=== PATIENT | female | born 1950 | race Caucasian/White ===

== ENCOUNTER 2016-08-18 10:14 | Day surgery (SDC) | payer OTHER ==
[~2016-08-18] VITALS: Ht 157.5 cm; Wt 108.4 kg
[2016-08-18] VITALS (12 sets, daily range): BP systolic 98–155; BP diastolic 49–92; PULSE 76–92; RESP 8–18; O2SAT 93–99
[~2016-08-18 10:14] MED LIST: ALBU8.5H2 INHALATION; AMLO10TA5 PO; ASCO100089 PO; BECL8.7A6 INHALATION; CALCIO DEL MAR PO; CHOL100045 PO; CYCL10TA9 PO; Clindamycin Inj 900 MG in IV Premix 1 EACH IV ONE; LISI30TA5 PO; Lactated Ringer's 1,000 ML IV SCH; MULT-1083 PO; OMEG1CAP25 PO; OMEP20CA11 PO; UBID200C31 PO; VENL75TA3 PO; VIT1TABL83 PO
[2016-08-18] MEDS ORDERED: MetoCLOpramide 5 mg/mL 2 mL Inj ONE (10:15)
[2016-08-18] MEDS ORDERED: Ondansetron 2 mg/mL 2 mL Inj ONE (10:15)
[2016-08-18] MEDS ORDERED: Phenylephrine/NS 100 mCg/mL 10 mL Syringe IVPUSH ONE (10:15)
[2016-08-18] MEDS ORDERED: fentaNYL-PF 50 mCg/mL 2 mL Inj ONE (10:15)
[2016-08-18] MEDS ORDERED: Propofol 10,000 mCg/mL 20 mL Inj ONE (10:15)
[2016-08-18] MEDS ORDERED: Dexamethasone 4 mg/mL Inj ONE (10:15)
[2016-08-18] MEDS ORDERED: Clindamycin 900 mg/50 mL D5W Premix IV ONE (10:46)
[2016-08-18] MEDS ORDERED: Famotidine 20 mg/50 mL NS Premix IV ONE (13:43)
[2016-08-18] MEDS ORDERED: HepLOK Flush 100 unit/mL 5 mL Inj IVFLUSH ONE (14:17)
[2016-08-18] MEDS ORDERED: Bupivacaine-MPF 0.5% W/EPI 30 mL Inj INFILTRATE ONE (14:17)
[2016-08-18] MEDS ORDERED: Lactated Ringer's 1,000 ML IV SCH (14:23)
[2016-08-18] MEDS ORDERED: Lactated Ringer's 500 ML IV PRN (14:23)
[2016-08-18] MEDS ORDERED: MetoCLOpramide 5 mg/mL 2 mL Inj IVPUSH PRN (14:25)
[2016-08-18] MEDS ORDERED: Labetalol 5 mg/mL 4 mL Inj IV PRN (14:25)
[2016-08-18] MEDS ORDERED: Phenylephrine 10,000 mCg/mL Inj IVPUSH PRN (14:25)
[2016-08-18] MEDS ORDERED: Atropine 0.4 mg/mL Inj IVPUSH PRN (14:25)
[2016-08-18] MEDS ORDERED: hydrALAZINE 20 mg/mL Inj IVPUSH PRN (14:25)
[2016-08-18] MEDS ORDERED: fentaNYL-PF 50 mCg/mL 2 mL Inj IVPUSH PRN (14:25)
[2016-08-18] MEDS ORDERED: EPHEDrine Sulfate 50 mg/mL Inj IVPUSH PRN (14:25)
[2016-08-18] MEDS ORDERED: Ketorolac 15 mg/mL Inj IVPUSH PRN (14:55)
[2016-08-18] MEDS ORDERED: HYDROcodone-APAP 5-325 mg Tablet PO PRN (14:55)
--- NOTE | 2016-08-18 14:56 | PCM.SURGOP ---
Surgical Operative Report Date of Service: Aug 18, 2016 Pre Operative Diagnosis Right breast cancer Post Operative Diagnosis Same Procedure: Tunneled left subclavian central venous catheter with power port, intraoperative fluoroscopy with interpretation Surgeon and Optometry Teacher: Surgeon: Angel Stanley MD Assistants: None Indication for Procedure 66-year-old woman who was diagnosed with locally advanced right breast cancer, clinical T4 N1, ER/IL positive, [id number]. Plans have been made to treat her with neoadjuvant chemotherapy. After discussion of risks and benefits, she agreed to proceed with Port-A-Cath placement. Findings: The left subclavian vein was patent. The catheter tip was positioned at the cavoatrial junction. Procedure Details After smooth induction of general anesthesia with an LMA, the patient was positioned in the supine position with both arms tucked. The patient was prepped and draped in wide sterile fashion. A procedural pause was performed according to the SCOAP checklist, and all were found to be in agreement. The patient was placed in Trendelenburg position. The left subclavian vein was accessed with a finder needle in a single pass, and the 0.035 inch wire was passed into the vena cava. It was confirmed with fluoroscopy. A subcutaneous pocket was created on the left upper chest wall using electrocautery. The port reservoir was secured to the fascia with interrupted 3-0 Vicryl sutures. The catheter was connected to the tunneler, and tunneled under the subcutaneous tissue to the venipuncture site. The introducer sheath and dilator was passed over the wire under fluoroscopic guidance. The catheter was then passed through the tear-away sheath into the vena cava. The sheath was removed. The catheter was then pulled back under fluoroscopic guidance until the tip was positioned at the cavoatrial junction. The catheter was cut to size, and connected to the port reservoir. The port was accessed using a Beckford needle, which aspirated and flushed easily. The port was then flushed with the final heparin flush, consisting of 100 units per mL, a total of 4 mL. A final fluoroscopic image confirmed that the port was in good position with no kinks, and there was no evidence of pneumothorax. The incision was closed with a running 4-0 Monocryl subcuticular stitch. Steri-Strips and sterile dressings were applied. At the end of the case all needle and sponge counts were correct 2. The patient was awakened from anesthesia without difficulty, and taken to the recovery room in satisfactory condition, having tolerated the procedure well. Complications There were no periprocedural complications identified. Surgical Specimen Removed: No Specimen sent to Pathology: Not applicable Anesthetic Plan: GA Grafts, Implants: Implants-See Implant Record Output, Estimated Blood Loss: 5 Blood Administration during johnson: No Drains: None Catheters: None copies to: Kiana White MD; Kelley France MD, Joshua D MD Aug 18, 2016 14:56
--- NOTE | 2016-08-18 16:25 | PCM.HPANE ---
Patient Data Surgeon Admitting Provider: Attending Provider:Angel Stanley MD Primary Care Physician:Kelley France MD Other Provider:[facility] Anesthesia Reason for Visit Right Breast Cancer Ht/WT & BMI Height (Feet): 5 Height (Inches): 2.00 Weight (Kilograms): 108.4 Body Mass Index 43.00 Allergies Coded Allergies: Penicillins (Verified Allergy, Severe, Rash,Itching,hives, 08/12/16) ondansetron (Verified Allergy, Severe, HIVES, 08/12/16) Uncoded Allergies: DYAZIDE (HCTZ/TRIAMTERENE) (Allergy, Severe, HIVES, 08/12/16) Past Anesthesia History Anesthesia History: Denies:: Anesthesia Reactions, Malignant Hyperthermia Diabetes History Hx Diabetes?: No MRSA MRSA: No Medications Hypertension Medication: Yes (LISINOPRIL,NORVASC) Home Meds Incl Beta Glenny: No Reported Medications Multivit-Min/FA/Lycopene/Lut (Senior Tabs)0.4 Mg-300 Mcg-250 Mcg Tablet1 Each PO DAILY 08/12/16 Cholecalciferol (Vitamin D3) (Vitamin D)1,000 Unit Capsule1,000 Unit PO DAILY # 1 BOTTLE Ref 0 08/12/16 Ascorbic Acid (Vitamin C)1,000 Mg Tab.chew1,000 Mg PO DAILY Ref 0 08/12/16 Vit B Comp/C/FA/Iron/Vit E (Vitamin B Complex Tablet)1 Each Tablet1 Each PO DAILY 08/12/16 Venlafaxine 75 Mg Vgbosi160 Mg PO DAILY Ref 0 08/12/16 Beclomethasone Dipropionate (Qvar)8.7 Gm Aer.w.adap1 Puff INHALATION BID #8.7 GM 08/12/16 Omeprazole 20 Mg Capsule.dr20 Mg PO BID Ref 0 08/12/16 [place]-3 Fatty Acids/Fish Oil ([place] 3 Fish Oil Softgel)1 Each Capsule.dr1 Each PO DAILY 08/12/16 Amlodipine (Norvasc)10 Mg Fspnyv67 Mg PO DAILY Ref 0 08/12/16 Lisinopril 30 Mg Mrjjci89 Mg PO BID 30 Days Ref 0 08/12/16 Cyclobenzaprine 10 Mg Bzrfga41 Mg PO HS PRN Spasm Ref 0 08/12/16 Ubidecarenone (Coenzyme Q-10)200 Mg Bulhcln132 Mg PO DAILY 08/12/16 [Calcio José Miguel] No Conflict Oyqxj037 Mg PO DAILY 08/12/16 Albuterol HFA (Proair HFA)8.5 Gm Hfa.aer.ad2 Puffs INHALATION Q4H PRN PRN #1 INHALER 08/12/16 Discontinued Reported Medications Trazodone 50 Mg Ivsqyi10 Mg PO HS Ref 0 07/28/16 Gabapentin (Neurontin)100 Mg Sutolwo050 Mg PO BID Ref 0 07/28/16 Lisinopril-Expunged Drug, Do Not Renew! 30 Mg Obwsjj27 Mg PO HS 06/18/10 AmLODIPine-Expunged Drug, Do Not Renew! 10 Mg Syyqvq86 Mg PO HS 06/18/10 Venlafaxine-Expunged Drug, Do Not Renew! (Effexor-Expunged Drug, Do Not Renew!) 75 Mg Yioaqs94 Mg PO HS 06/18/10 Omeprazole-Expunged Drug, Do Not Renew! 20 Mg Tablet.dr20 Mg PO BID 06/18/10 History History of ENT Problems?: Yes HEENT History: Positive for:: Cataracts (S/P EXTRACTIONS) Other HEENT Pertinent History: S/P T&A Hx of Heart Problems?: Yes Cardiovascular History: Positive for:: Chest Pain (ED VISIT 2004) Hypertension (HYPERLIPIDEMIA) Denies:: Cardiac Surgery Congestive Heart Failure Edema Heart Murmur (ECHO 08/2016 EF 60-65%) Irregular Heartbeat Pacemaker Thrombophlebitis Valvular Heart Disease Other Cardiac History: HX LEUKOCYTOSIS Hx of Respiratory Problem?: Yes Respiratory History: Positive for:: Asthma (MILD REACTIVE AIRWAY DISEASE-PFT 07/2013) COPD Cough Dyspnea (MILD NIELSON) Emphysema Use of C-PAP Machine (SUHAIL+ ?CPAP) Hx Neurologic Problems?: Yes Other Neurological Pertinent: RLS Hx of GI Problems?: Yes Gastrointestinal History: Positive for:: Gastroesphageal Reflux Hepatitis (HX HEP C) Hiatal Hernia Denies:: Diverticulitis Gastrointestinal Bleeding Heartburn Rectal Bleeding (HX HEMORRHOIDS) Other GI Pertinent History: C/OF CHRONIC CONSTIPATION Hx of Problems?: No Female Hx: Positive for:: Problems with Breasts? (S/P BREAST BX FOR RT BREAST CA/IV ACCESS=CURRENT PROBLEM) Denies:: Currently Endometriosis Pelvic Inflammatory Skin History: Positive for:: History Skin Disorders? (ACTINIC KERATOSIS) Denies:: Pressure Ulcers Hx Musculoskeletal Problems?: Yes Musculoskeletal History: Positive for:: Fibromyalgia Musculoskeletal Trauma (S/P RT KNEE SCOPE,ORIF RT CLAVICLE) Osteoarthritis (OSTEOPENIA) Denies:: Back Injury Joint Replacement Hx of Psycho/Social Problems?: Yes Psycho Social History: Positive for:: Anxiety (CHRONIC) Hx Depression (MAJOR) Denies:: Bipolar Disorder Suicide Attempt Hx Surgeries?: Yes (RT KNEE SCOPE,ORIF RT CLAVICLE,T&A,CATARACTS) Hx Any Other Health Problems?: Yes Other History: Positive for:: Cancer (RT BREAST) Denies:: Endocrine Disease Hospitalization Thyroid Disease History Blood Transfusions: Denies:: Blood Transfuse Reaction Blood Transfusions Hx Diabetes: No Hx Alcohol Use: NoHx Substance Use: No Smoking Status: Never Smoker Have You Smoked inLast 12 mo: No Stop/Bang S-Snoring: Do You Snore Loudly: No T-Tired: feel tired, fatigued: Yes O-Obsered: Observed not breath: No P-Blood Pressure: treated: Yes B- Body Mass Index > 35 kg/m2: Yes A- Age over 50: Yes N- Neck Large Circumference: Yes G- Gender Male: No SUHAIL Total Score: 5 Risk Assessment Category Category 1A: Patient has history of documented sleep apnea, and HAS NOT received any narcotic, sedative or anesthesia administration during this stay. Category 1B: Patient has history of documented sleep apnea, and HAS received any narcotic , sedative or anesthesia administration during this stay Category 2: Patient has SUSPECTED Obstructive Sleep Apnea, and HAS received any narcotic , sedative or anesthesia administration during this stay. Category 3: Patient has SUSPECTED Obstructive Sleep Apnea and HAS NOT received narcotic, sedative or anesthesia administration during this stay. Category 4: Outpatient in Procedural Areas with known sleep apnea or who screen positive for High Risk via the STOP/BANG questionnaire. Exam Exam Vital Signs Vital Signs Date Time Temp Pulse Resp B/P Pulse Ox O2 Delivery O2 Flow Rate FiO2 08/18/16 10:57 36.2 92 18 155/92 96 Room Air General Appearance: Alert, Oriented X3, Cooperative, No Acute Distress HEENT/AIRWAY: MP 2 Lungs: Diminished Heart: Exam Unremarkable, Regular Rate/Rhythm, No Murmurs/Rubs/Gallops Plan Impression Patient chart reviewed, patient interviewed and anesthestic plan with risks, benefits, and alternatives discussed, and informed consent obtained. NPO Status: 08/17 at 2200 ASA Physical Status: ASA3 Severe Disease (COPD) Anesthetic Plan: GA Bene/Risks/Altern/Consents: Yes HP Complete Prior to Induction: Yes Roshan Sifuentes MD Aug 18, 2016 12:21
--- NOTE | 2016-08-18 16:26 | PCM.ANEP1 ---
Post Anesthesia Phase 1 PACU Phase 1 Assessment Date of Service: Aug 18, 2016 Vital Signs Vital Signs Date Time Temp Pulse Resp B/P Pulse Ox O2 Delivery O2 Flow Rate FiO2 08/18/16 15:42 81 16 125/53 93 Room Air 08/18/16 15:39 36 83 16 115/55 94 Room Air 08/18/16 15:30 79 15 119/61 95 Room Air 08/18/16 15:20 36.0 81 13 117/50 96 Room Air 08/18/16 15:15 79 15 112/50 95 Room Air 08/18/16 15:10 78 15 116/54 95 Room Air 08/18/16 15:05 36.3 78 11 114/57 93 Room Air 08/18/16 15:00 76 8 108/50 94 Room Air 08/18/16 14:55 80 17 98/49 96 Room Air 08/18/16 14:50 76 16 116/59 94 Room Air 08/18/16 14:47 36.3 78 11 123/60 99 Simple Mask 8 08/18/16 10:57 36.2 92 18 155/92 96 Room Air Anesthetic Administered: GA Level of Alertness: Awake, talking RAMÍREZ's with Equal Strength: Yes Pain: No Nausea or Vomiting: No Oxygen Delivery: Simple Mask Lungs: Diminished Dermatome Level: Full Sensation Roshan Sifuentes MD Aug 18, 2016 16:26
--- NOTE | 2016-08-18 16:26 | PCM.ANEP2 ---
Post Anesthesia Evaluation ASA/CMS Post Anesthesia VS in Patient's Normal Range?: Yes Resp Stable; Airway Patent?: Yes CV Function & Hydration Stable: Yes Mental Status Recovered?: Yes Pain control Satisfactory?: Yes N/V Control Satisfactory?: Yes Roshan Sifuentes MD Aug 18, 2016 16:26
[2016-08-24] MEDS ORDERED: METO25TA99 PO (11:01)
[2016-10-05] MEDS ORDERED: VIT500LI PO (11:28)
[2016-11-27] MEDS ORDERED: BECL8.7A6 INHALATION (15:34)
[2016-11-27] MEDS ORDERED: GABA400C PO (15:34)
[2016-11-27] MEDS ORDERED: TRAZ-115 PO (15:34)
[2016-11-27] MEDS ORDERED: LISI30TA5 PO (15:34)
[2016-11-27] MEDS ORDERED: METO25TA99 PO (15:34)
[2016-11-27] MEDS ORDERED: flexeril (15:34)
[2016-11-27] MEDS ORDERED: AMLO10TA5 PO (15:34)
[2016-11-27] MEDS ORDERED: VENL150T3 PO (15:34)
[2016-11-27] MEDS ORDERED: OMEP20TA86 PO (15:34)
== END 2016-08-18 23:59 | disposition home or self-care (01) ==
LOC: SAS 10:14
PROVIDERS: ATTEND Student in an Organized Health Care Education/Training Program
DX: C50.111 Malignant neoplasm of central portion of right female breast (principal); Z17.0 Estrogen receptor positive status [ER+]; I10 Essential (primary) hypertension; J44.9 Chronic obstructive pulmonary disease, unspecified; G47.33 Obstructive sleep apnea (adult) (pediatric)
CPT/HCPCS: 36561; 77001; C1788; J1100; J1642; J2370; J2405; J2765; J3490; J7120

== ENCOUNTER 2016-12-01 09:57 | Day surgery (SDC) | payer MEDICARE, OTHER ==
[~2016-12-01] VITALS: Ht 157.5 cm; Wt 105.7 kg
[2016-12-01] VITALS (9 sets, daily range): BP systolic 97–140; BP diastolic 42–79; PULSE 93–99; RESP 10–20; O2SAT 94–100
[~2016-12-01 09:57] MED LIST changes: -ALBU8.5H2 INHALATION; -ASCO100089 PO; -CALCIO DEL MAR PO; -CHOL100045 PO; -CYCL10TA9 PO; +GABA400C PO; +METO25TA99 PO; -MULT-1083 PO; -OMEG1CAP25 PO; -OMEP20CA11 PO; +OMEP20TA86 PO; +TRAZ-115 PO; -UBID200C31 PO; +VENL150T3 PO; -VENL75TA3 PO; -VIT1TABL83 PO; +flexeril
[2016-12-01] MEDS ORDERED: Vasopressin 20 Unit/mL Inj ONE (09:58)
[2016-12-01] MEDS ORDERED: Phenylephrine/NS-PF 100 mCg/mL 5 mL Syringe IVPUSH ONE (09:58)
[2016-12-01] MEDS ORDERED: Dexamethasone 4 mg/mL Inj ONE (09:58)
[2016-12-01] MEDS ORDERED: HYDROmorphone 2 mg/mL Inj ONE (09:58)
[2016-12-01] MEDS ORDERED: fentaNYL-PF 50 mCg/mL 2 mL Inj ONE (09:58)
[2016-12-01] MEDS ORDERED: MetoCLOpramide 5 mg/mL 2 mL Inj ONE (09:58)
[2016-12-01] MEDS ORDERED: Rocuronium 10 mg/mL 5 mL Inj ONE (09:58)
[2016-12-01] MEDS ORDERED: Propofol 10,000 mCg/mL 20 mL Inj ONE (09:58)
[2016-12-01] MEDS ORDERED: CYCL10TA9 PO (11:02)
[2016-12-01] MEDS ORDERED: CHOL100043 PO (11:02)
[2016-12-01] MEDS ORDERED: ASCO-294 PO (11:02)
[2016-12-01] MEDS ORDERED: Bupivacaine-MPF 0.25%/EPI 30 mL Inj INFILTRATE ONE ×2 (12:56→13:53)
[2016-12-01] MEDS ORDERED: Lactated Ringer's 1,000 ML IV ONE ×3 (12:57→14:43)
[2016-12-01] MEDS ORDERED: Bupivacaine 0.5%/EPI 50 mL Inj INFILTRATE ONE (13:53)
[2016-12-01] MEDS ORDERED: Lactated Ringer's 1,000 ML IV SCH (15:32)
[2016-12-01] MEDS ORDERED: Lactated Ringer's 500 ML IV PRN (15:32)
[2016-12-01] MEDS ORDERED: Phenylephrine 10,000 mCg/mL Inj IVPUSH PRN (15:35)
[2016-12-01] MEDS ORDERED: HYDROmorphone 1 mg/mL Inj IVPUSH PRN (15:35)
[2016-12-01] MEDS ORDERED: Dexamethasone 4 mg/mL Inj IVPUSH PRN (15:35)
[2016-12-01] MEDS ORDERED: MetoCLOpramide 5 mg/mL 2 mL Inj IVPUSH PRN ×2 (15:35→15:40)
[2016-12-01] MEDS ORDERED: EPHEDrine Sulfate 50 mg/mL Inj IVPUSH PRN (15:35)
[2016-12-01] MEDS ORDERED: Morphine PCA 1 mg/mL 30 mL Inj IV PRN (15:40)
[2016-12-01] MEDS ORDERED: Ondansetron 2 mg/mL 2 mL Inj IVPUSH PRN (15:40)
[2016-12-01] MEDS ORDERED: Acetaminophen IV 1,000 MG in IV Premix 1 EACH IV PRN (15:40)
--- NOTE | 2016-12-01 15:50 | PCM.SURGOP ---
Surgical Operative Report Date of Service: December 01, 2016 Pre Operative Diagnosis Right breast cancer Post Operative Diagnosis Same Procedure: Bilateral simple mastectomy, right axillary lymph node dissection with reverse axillary lymphatic mapping Surgeon and Casting And Curing Operator: Surgeon: Angel Stanley MD Assistants: Julio Cesar Webb MS3 Indication for Procedure 66-year-old woman who was originally diagnosed with clinical T2 N1, and possibly T4 right breast invasive ductal carcinoma, ER/MD positive, HER-2 negative. She was treated with neoadjuvant chemotherapy. Her preoperative response was not optimal, and she still had a primary mass in the right breast measuring 5.2 cm. She had persistently abnormal axillary lymph nodes on her preoperative MRI. After discussion of risks and benefits, she agreed to proceed with bilateral mastectomy, right axillary lymph node dissection, reverse axillary lymphatic mapping. She was not interested in breast reconstruction. Findings: Methylene blue was injected into the right upper inner arm. There were no visible blue lymphatics in the right axilla at the time of dissection. Procedure Details After smooth induction of general endotracheal anesthesia, she was placed in the supine position, and was prepped and draped in wide sterile fashion. A procedural pause was performed according to the SCOAP checklist, and all were found to be in agreement. An elliptical left breast incision was made, encompassing the nipple areolar complex. She is morbidly obese, with a lot of excess redundant left flank tissue, so the incision extended well onto her left flank. Skin flaps were raised superiorly and inferiorly. Circumferential dissection was carried out with electrocautery. The skin and subcutaneous tissue was elevated off the underlying breast capsule. Margins of dissection were the left clavicle, the midline, the left inframammary crease, and the left midaxillary line. Superiorly, she had a left upper chest Port-A-Cath, and the capsule from the port site was not interrupted. The left breast was then dissected off the underlying chest wall, and pectoralis fascia was resected en bloc. Medial and lateral perforating vessels were controlled with hemoclips. The left breast was oriented with suture, and passed off the field for permanent pathology. A 19 [place] round VARUN drain was brought out through a separate incision laterally, and the drain was secured to the skin with a 3-0 nylon stitch. The skin incision was closed with an interrupted deep dermal 3-0 Vicryl suture, and a running 4-0 Vicryl subcuticular stitch. Right simple mastectomy was performed next. An elliptical incision was made, encompassing the nipple areolar complex. Flaps were raised superiorly and inferiorly. Circumferential dissection was carried out with electrocautery as the skin and subcutaneous tissue was elevated off the underlying breast capsule. Margins of dissection were the right clavicle, the midline, the right inframammary crease, and the right midaxillary line. The right breast was elevated off the underlying chest wall. Medial and lateral perforating vessels were controlled with hemoclips. The right breast was oriented with suture, and passed off the field for permanent pathology. Because of the large tumor size, I elected to take a small chest wall margin including pectoralis muscle. This was resected with electrocautery, oriented with suture, and sent for permanent pathology. 1 mL of methylene blue was injected into the right upper medial arm into the subdermal tissue, and the skin was massaged for several minutes. A complete level I and 2 right axillary lymph node dissection was then performed. The right axillary vein was skeletonized. The right long thoracic and thoracodorsal nerves were visualized and preserved. All of the loose areolar node bearing tissue was then swept out of the apex of the axilla inferiorly. There were several branches off the axillary vein, which were divided with hemoclips. The right axillary tissue was dissected free, and sent for permanent pathology. During the course of axillary dissection, there were no visible blue lymphatics. At the completion of dissection, there was no residual palpable lymphadenopathy, and the long thoracic and thoracodorsal nerves remained intact. A 19 [place] round VARUN drain was brought out through separate incision laterally. The drain was secured to the skin with a 2-0 nylon stitch. The skin incision was closed with interrupted deep dermal 3-0 Vicryl suture, and a running 4-0 Vicryl subcuticular stitch. Steri-Strips and sterile dressings were applied. At the end of the case all needle and sponge counts were correct 2. The patient was awakened from anesthesia without difficulty, and taken to the recovery room in satisfactory condition, having tolerated the procedure well. Complications There were no periprocedural complications identified. Surgical Specimen Removed: Yes Specimen sent to Pathology: Yes Surgical Specimen description: Left breast. Right breast. Right chest wall tissue. Right axillary lymph node dissection. Anesthetic Plan: GA Grafts, Implants: None Output, Estimated Blood Loss: 50 Blood Administration during johnson: No Drains: VARUN Drain #1, VARUN Drain #2 Catheters: None copies to: Verena Ratliff MD; Kiana White MD; Norris Bello MD, Joshua D MD December 01, 2016 15:50
--- NOTE | 2016-12-01 16:01 | PCM.ANEP1 ---
Post Anesthesia Phase 1 PACU Phase 1 Assessment Date of Service: December 01, 2016 Vital Signs Vital Signs Date Time Temp Pulse Resp B/P Pulse Ox O2 Delivery O2 Flow Rate FiO2 12/01/16 15:55 99 12 113/60 94 Room Air 12/01/16 15:50 99 14 97/54 97 Room Air 12/01/16 15:45 96 13 108/47 100 Simple Mask 8 12/01/16 15:41 36.3 95 13 106/57 100 Simple Mask 8 12/01/16 11:09 35.0 95 16 140/75 96 Room Air Anesthetic Administered: GA Level of Alertness: Awake, talking RAMÍREZ's with Equal Strength: Yes Pain: No Nausea or Vomiting: No Cardiovascular Function and Hy: Yes Oxygen Delivery: Room Air Lungs: Clear to Auscultation Dermatome Level: Full Sensation Complications: No Morales Wright MD December 01, 2016 16:01
--- NOTE | 2016-12-01 16:01 | PCM.HPANE ---
Patient Data Surgeon Admitting Provider: Attending Provider:Angel Stanley MD Primary Care Physician:Kiana White MD Other Provider:Rhianna Izquierdoingham Anesthesia Reason for Visit Right Breast Cancer Ht/WT & BMI Height (Feet): 5 Height (Inches): 2 Weight (Kilograms): 108.4 Body Mass Index 43.00 Allergies Coded Allergies: Penicillins (Verified Allergy, Severe, Rash,Itching,hives, 08/12/16) ondansetron (Verified Allergy, Severe, HIVES, 08/12/16) triamterene (Verified Allergy, Intermediate, MALAISE, 12/01/16) Past Anesthesia History Anesthesia History: Denies:: Abnormal Airway, Anesthesia Reactions, Difficult Intubation, Fam Anesthesia Reaction, Malignant Hyperthermia Diabetes History Hx Diabetes?: No MRSA MRSA: No Medications Reported Medications Ascorbate Calcium (Vitamin C)500 Mg Klnnkj925 Mg PO DAILY 12/01/16 Cholecalciferol (Vitamin D3) (Vitamin D)1,000 Unit Tablet2,000 Unit PO DAILY #1 BOTTLE Ref 0 12/01/16 Cyclobenzaprine 10 Mg Fjcbhr70 Mg PO HS PRN Spasm Ref 0 12/01/16 Venlafaxine ER 150 Mg Tab.er.37537 Mg PO DAILY Ref 0 11/27/16 Trazodone 50 Mg Mmmyfe82 Mg PO HS PRN Insomnia Ref 0 11/27/16 Beclomethasone Dipropionate (Qvar)8.7 Gm Aer.w.adap1 Puff INHALATION BID #8.7 GM 11/27/16 Omeprazole 20 Mg Tablet.dr20 Mg PO DAILY 11/27/16 Amlodipine (Norvasc)10 Mg Vmesmd04 Mg PO DAILY Ref 0 11/27/16 Gabapentin (Neurontin)400 Mg Ggnksbn640 Mg PO TID PRN For Pain 30 Days Ref 0 11/27/16 Metoprolol Succinate ER 25 Mg Tab.er.24h25 Mg PO DAILY Ref 0 11/27/16 Lisinopril 30 Mg Vrbmgd21 Mg PO DAILY 30 Days Ref 0 11/27/16 Discontinued Reported Medications [flexeril] No Conflict Check10 Mg HS PRN For Spasm 11/27/16 Vit C/Ascorbate Ca/Ascorb Sod (Vitamin C 500 mg/15 ml Liquid)500 Mg/15 Ml Bpvivf285 Mg PO 10/05/16 Metoprolol Succinate ER 25 Mg Tab.er.24h25 Mg PO DAILY Ref 0 08/24/16 Multivit-Min/FA/Lycopene/Lut (Senior Tabs)0.4 Mg-300 Mcg-250 Mcg Tablet1 Each PO DAILY 08/12/16 Cholecalciferol (Vitamin D3) (Vitamin D)1,000 Unit Capsule1,000 Unit PO DAILY # 1 BOTTLE Ref 0 08/12/16 Vit B Comp/C/FA/Iron/Vit E (Vitamin B Complex Tablet)1 Each Tablet1 Each PO DAILY 08/12/16 Venlafaxine 75 Mg Izgkmy730 Mg PO DAILY Ref 0 08/12/16 Beclomethasone Dipropionate (Qvar)8.7 Gm Aer.w.adap1 Puff INHALATION BID #8.7 GM 08/12/16 Omeprazole 20 Mg Capsule.dr20 Mg PO BID Ref 0 08/12/16 [place]-3 Fatty Acids/Fish Oil ([place] 3 Fish Oil Softgel)1 Each Capsule.dr1 Each PO DAILY 08/12/16 Amlodipine (Norvasc)10 Mg Vcsiqh45 Mg PO DAILY Ref 0 08/12/16 Lisinopril 30 Mg Jjsbty55 Mg PO BID 30 Days Ref 0 08/12/16 Cyclobenzaprine 10 Mg Xcociy59 Mg PO HS PRN Spasm Ref 0 08/12/16 Ubidecarenone (Coenzyme Q-10)200 Mg Abvszyv376 Mg PO DAILY 08/12/16 [Calcio [place]] No Conflict Uykis071 Mg PO DAILY 08/12/16 Albuterol HFA (Proair HFA)8.5 Gm Hfa.aer.ad2 Puffs INHALATION Q4H PRN PRN #1 INHALER 08/12/16 History History of ENT Problems?: Yes HEENT History: Positive for:: Cataracts (bilateral) Denies:: Abnormal Airway Difficult Intubation Dysphagia Sinus Problem TMJ Denture Type: None Teeth Condition: Within Normal Limits Missing Teeth Hx of Heart Problems?: Yes Cardiovascular History: Positive for:: Hypertension (HYPERLIPIDEMIA) Denies:: Cardiac Surgery Chest Pain Congestive Heart Failure Edema Heart Murmur Irregular Heartbeat Pacemaker Thrombophlebitis Valvular Heart Disease (echo 60-65% 0836) Hx of Respiratory Problem?: Yes Respiratory History: Positive for:: Asthma COPD Cough Dyspnea (MILD NIELSON) Emphysema Use of Inhalers / NEBS Denies:: Pneumonia Tuberculosis Use of C-PAP Machine (sleep study mild- no CPAP needed) Hx Neurologic Problems?: No Neurological History: Denies:: CVA Dementia Headaches Multiple Sclerosis Parkinson's Disease Seizures TIA Other Neurological Pertinent: 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 (right breast cancer current admission problem) Denies:: Currently (tubal ) Endometriosis Pelvic Inflammatory Skin History: Positive for:: History Skin Disorders? (scabbed areas from chemo - across shoulders, arms left calf thigh) Denies:: Pressure Ulcers Hx Musculoskeletal Problems?: Yes Musculoskeletal History: Positive for:: Fibromyalgia Musculoskeletal Trauma (S/P RT KNEE SCOPE, ORIF RT CLAVICLE, right arm ORIF with hardware) Osteoarthritis (osteopenia) Denies:: Back Injury Joint Replacement Myasthenia Gravis Systemic Lupus Hx of Psycho/Social Problems?: Yes Psycho Social History: Positive for:: Anxiety Hx Depression Denies:: Bipolar Disorder Suicide Attempt Hx Surgeries?: Yes (RT KNEE SCOPE,ORIF RT CLAVICLE,T&A,CATARACTS) Hx Any Other Health Problems?: Yes Other History: Positive for:: Cancer (right breast) Denies:: Endocrine Disease Hospitalization Thyroid Disease History Blood Transfusions: Positive for:: Accept Blood Products? Denies:: Blood Transfuse Reaction Blood Transfusions (iron infusion jun 2016) Hx Diabetes: No Hx Alcohol Use: YesAlcoholic Drinks Per Day: 1-2 x monthlyHx Substance Use: Yes (spray tincture for sleep) Smoking Status: Never Smoker Have You Smoked inLast 12 mo: No Stop/Bang S-Snoring: Do You Snore Loudly: No T-Tired: feel tired, fatigued: No O-Obsered: Observed not breath: No P-Blood Pressure: treated: Yes B- Body Mass Index > 35 kg/m2: Yes A- Age over 50: Yes N- Neck Large Circumference: Yes G- Gender Male: No SUHAIL Total Score: 4 Risk Assessment Category Category 1A: Patient has history of documented sleep apnea, and HAS NOT received any narcotic, sedative or anesthesia administration during this stay. Category 1B: Patient has history of documented sleep apnea, and HAS received any narcotic , sedative or anesthesia administration during this stay Category 2: Patient has SUSPECTED Obstructive Sleep Apnea, and HAS received any narcotic , sedative or anesthesia administration during this stay. Category 3: Patient has SUSPECTED Obstructive Sleep Apnea and HAS NOT received narcotic, sedative or anesthesia administration during this stay. Category 4: Outpatient in Procedural Areas with known sleep apnea or who screen positive for High Risk via the STOP/BANG questionnaire. Exam Exam General Appearance: Alert, Oriented X3, Cooperative, No Acute Distress HEENT/AIRWAY: MP 2 Lungs: Clear to Auscultation Heart: Exam Unremarkable Plan Impression Patient chart reviewed, patient interviewed and anesthestic plan with risks, benefits, and alternatives discussed, and informed consent obtained. ASA Physical Status: ASA3 Severe Disease Anesthetic Plan: GA Bene/Risks/Altern/Consents: Yes HP Complete Prior to Induction: Yes Morales Wright MD December 01, 2016 08:40
[2016-12-01] MEDS: fentaNYL-PF 50 mCg/mL 2 mL Inj IVPUSH PRN ×2 (16:09→16:19)
[2016-12-01] MEDS: Dextrose 5% Lactated Ringer's 1,000 ML IV SCH (17:36)
[2016-12-01] MEDS ORDERED: 0.9% Sodium Chloride 250 ML IV SCH (17:44)
[2016-12-01] MEDS ORDERED: Sodium Chloride LOK Flush 10 mL Syringe IVFLUSH PRN ×2 (17:45)
[2016-12-01] MEDS ORDERED: HepLOK Flush 100 unit/mL 5 mL Inj IVFLUSH PRN (17:45)
[2016-12-01] MEDS: Fluticasone 100 mCg Inhaler INHALATION SCH (20:12)
[2016-12-01 20:25] LABS: APPEARANCE,URINE CLEAR (CLEAR,HAZY); COLOR,URINE GREEN (YELLOW); OCCULT BLOOD,URINE NEGATIVE (NEGATIVE); PH,URINE 5.5 (5.0-8.0); UROBILINOGEN,URINE NORMAL (NORMAL)
[2016-12-02] VITALS (7 sets, daily range): BP systolic 99–119; BP diastolic 66–78; PULSE 77–87; RESP 18–20; O2SAT 95–98
[2016-12-02] MEDS: Dextrose 5% Lactated Ringer's 1,000 ML IV SCH (05:31)
[2016-12-02] MEDS ORDERED: Pantoprazole 40 mg ER24 Tablet PO SCH (06:30)
[2016-12-02 07:23] LABS: Mean Corpuscular Hemoglobin 33.6 pg (27.0-35.0); Mean Corpuscular Volume 107.2 fL (81-100)
--- NOTE | 2016-12-02 07:35 | PCM.DISURG ---
Surgical Discharge Instruction Date of Service December 02, 2016 Dates of Hospitalization Date of Hospital Admission Providers Admitting Physician: Primary Care Physician: Kiana White MD Attending Physician: Angel Stanley MD Discharge Diagnosis Discharge Diagnosis right breast cancer Post Operative diagnosis Same Diet Discharge Diet: No restrictions Activity Discharge Activity-General: Activity as pain allows, Other (Gentle right arm range of motion exercises) Dressing and Incisional Care Dressing Care: Allow Steri Stripes to fall off Hygiene: May shower Additional Instructions Discharge Instructions Empty VARUN drains daily or more frequently as needed. Call the surgery clinic when individual drain output is less than 30mL in 24 hours for 2 consecutive days, and the drain can be removed at that time. Follow Up Plan Follow Up Plan with Dr. Stanley in 2 weeks. Call your provider for: Fever (over 101.5F), Discharge @ incision, pus discharge Angel Stanley MD December 02, 2016 07:35
[2016-12-02] MEDS ORDERED: HYDR-4003 PO (07:36)
[2016-12-02] MEDS ORDERED: POLY17PO6 PO (07:36)
[2016-12-02] MEDS: Fluticasone 100 mCg Inhaler INHALATION SCH (08:00)
[2016-12-02] MEDS ORDERED: Ascorbic Acid 500 mg Tablet PO SCH (08:30)
[2016-12-02] MEDS ORDERED: Venlafaxine XR 75 mg ER24 Capsule PO SCH (08:30)
[2016-12-02] MEDS ORDERED: MeTOProlol XL 25 mg ER24 Tablet PO SCH (08:30)
--- NOTE | 2016-12-02 09:41 | PROG NOTE ---
[address] [address] PROGRESS NOTE PATIENT: CYRIL LIVINGSTON : 1950 MR#: [id number] ADMIT: 12/01/2016 JOB ID: [id number] DATE: 12/02/2016 SUBJECTIVE: The patient is seen in followup. She had a good night overnight and only used her SPLUNK ARCHITECT three times for pain. She has no nausea. OBJECTIVE: Temperature 36.6, pulse 82, blood pressure 101/66, saturation 95% on room air. General: She is resting in bed in no acute distress. Chest is clear. Heart: Regular rate and rhythm. No murmurs. Breasts: Both mastectomy incisions are well approximated with no evidence of hematoma. Skin flaps are well perfused. VARUN drains are serosanguineous, output overnight was 30 and 20 cc respectively. Extremities: She has induration of the right medial arm from methylene blue injection. LABORATORIES: White count of 14.9, hematocrit 29.7, platelets 235, creatinine 0.45. ASSESSMENT AND PLAN: A 66-year-old woman, postoperative day one, status post bilateral mastectomy with right axillary lymph node dissection for right breast cancer. She is doing well clinically. She will be discharged to home today. She will followup in surgery clinic when VARUN output is less than 30 cc in 24 hours for two consecutive days.
[2016-12-02] MEDS: HYDROcodone-APAP 5-325 mg Tablet PO PRN ×2 (10:29→14:11)
--- NOTE | 2016-12-02 15:27 | PCM.DC.SUR ---
Discharge Summary Date of Service: Date of Hospital Admission: 12/01/2016 Date of Operation(s): 12/01/2016 Date of Discharge: 12/02/2016 Diagnosis at Time of Discharge Primary diagnosis: Right breast invasive ductal carcinoma, ER/OR positive, HER-2 negative. Other chronic conditions: 1. Restless leg syndrome 2. Hiatal hernia 3. Obstructive sleep apnea 4. Actinic keratoses 5. Vitamin D deficiency 6. Osteopenia 7. Gastritis 8. Lumbar degenerative disc disease 9. Osteoarthritis 10. Hyperlipidemia 11. Impaired glucose tolerance 12. Hypertension 13. Hepatitis C 14. Depression 15. Fibromyalgia 16. GERD 17. Former cigarette smoker Problems: Operation 1. Bilateral simple mastectomy 2. Right axillary lymph node dissection with reverse axillary lymphatic mapping Brief History and Physical: The patient is a 66-year-old woman who was originally diagnosed with clinical T2 N1, and possibly T4 right breast invasive ductal carcinoma, ER/OR positive, HER-2 negative. She was treated with neoadjuvant chemotherapy. Her preoperative response was not optimal, and she still had a primary mass in the right breast measuring 5.2 cm. She had persistently abnormal axillary lymph nodes on her preoperative MRI. She agreed to proceed with bilateral mastectomy , right axillary lymph node dissection, and reverse axillary lymphatic mapping. She was not interested in breast reconstruction. Consultants: None Hospital Course: The patient was admitted and underwent the above-mentioned operations without complication. She was stable for discharge on her first postsurgical day. Pathology: Pending Disposition: The patient was discharged home on her first postsurgical day. At the time of discharge her flaps were viable, there was no hematoma, pain was well controlled on oral analgesic, and she had no nausea. Follow-up Plan: She will follow-up in the office with Dr. Stanley in 2 weeks. Amlodipine (Norvasc) 10 Mg Tablet 10 MG PO DAILY (Reported) Ascorbate Calcium (Vitamin C) 500 Mg Tablet 500 MG PO DAILY (Reported) Beclomethasone Dipropionate (Qvar) 8.7 Gm Aer.w.adap 1 PUFF INHALATION BID ( Reported) Cholecalciferol (Vitamin D3) (Vitamin D) 1,000 Unit Tablet 2,000 UNIT PO DAILY ( Reported) Cyclobenzaprine (Cyclobenzaprine) 10 Mg Tablet 10 MG PO HS PRN PRN Spasm ( Reported) Gabapentin (Neurontin) 400 Mg Capsule 400 MG PO TID PRN PRN For Pain (Reported) Hydrocodone-Acetaminophen 5-325 mg (Hydrocodone-Acetaminophen 5-325 mg) 1 Each Tablet 1-2 TABLET PO Q6 PRN PRN For Mild Pain Lisinopril (Lisinopril) 30 Mg Tablet 30 MG PO DAILY (Reported) Metoprolol Succinate ER (Metoprolol Succinate ER) 25 Mg Tab.er.24h 25 MG PO DAILY (Reported) Omeprazole (Omeprazole) 20 Mg Tablet.dr 20 MG PO DAILY (Reported) Polyethylene Glycol 3350 (Miralax) 17 Gm Powd.pack 17 GM PO DAILY Trazodone (Trazodone) 50 Mg Tablet 50 MG PO HS PRN PRN Insomnia (Reported) Venlafaxine ER (Venlafaxine ER) 150 Mg Tab.er.24 300 MG PO DAILY (Reported) copies to: Verena Ratliff MD; Kiana White MD, Fred H PA-C December 02, 2016 15:27
--- NOTE | 2016-12-07 14:24 | PATH ---
SURGICAL PATHOLOGY Attending Physician:Tricia Castellano CASE STATUS: Signed Out PATIENT NAME: CYRIL DELGADO PID: [id number] : 1950 DATE COLLECTED:12/01/2016 00:00 SPECIMEN: 1: Breast, Simple Mastectomy (w/o lymph nodes) 2: Breast, Simple Mastectomy (lymph nodes submitted separately) 3: Skin, biopsy 4: Lymph Node, Biopsy CLINICAL HISTORY: RIGHT BREAST CANCER 1). LEFT BREAST, SHORT STITCH SUPERIOR, LONG LATERAL 2). RIGHT BREAST, SHORT STITCH SUPERIOR, LONG LATERAL 3). RIGHT CHEST WALL TISSUE, SHORT STITCH SUPERIOR, LONG STTICH LATERAL 4). RIGHT AXILLARY LYMPH NODE FINAL DIAGNOSIS: 1.LEFT SIMPLE MASTECTOMY SPECIMEN: NEGATIVE FOR MALIGNANCY AND SIGNIFICANT ATYPIA. 3 SMALL LYMPH NODES ARE PRESENT WITHIN THE AXILLARY TAIL, NEGATIVE FOR MALIGNANCY. 2.RIGHT BREAST SPECIMEN: INVASIVE CARCINOMA OF THE BREAST (SEE CAP CANCER CASE SUMMARY BELOW). CAP CANCER CASE SUMMARY INVASIVE CARCINOMA OF THE BREAST: PROCEDURE: Total mastectomy LYMPH NODE SAMPLING: Seven lymph nodes identified and 5 are positive for tumor with extranodal tumor extension. SPECIMEN LATERALITY: Right TUMOR SITE: Lower outer quadrant TUMOR SIZE: 6.5 x 4.5 x 5.5 cm HISTOLOGIC TYPE: Infiltrating ductal carcinoma HISTOLOGIC GRADE: KATIE HISTOLOGIC SCORE Glandular/Tubular differentiation: Score 3 of 3 Nuclear Pleomorphism: Score 2 of 3 Mitotic Rate: Score 1 of 3 Overall Grade: Grade 2 of 3 (intermediate grade) TUMOR FOCALITY: Apparent single focus in this specimen DUCTAL CARCINOMA IN SITU: Not identified MACROSCOPIC AND MICROSCOPIC EXTENT OF TUMOR SKIN: Negative for tumor NIPPLE: Tumor invades the subareolar smooth muscle, however, the skin of nipple is negative for tumor SKELETAL MUSCLE: Absent in this specimen (see part 3) MARGINS INVASIVE CARCINOMA: Anterior: Skin negative for tumor Posterior: 1.5 cm Superior: 5.5 cm Inferior: 1.5 cm Medial: 8.5 cm Lateral: 4.0 cm LYMPH NODES Total number of lymph nodes examined: 7 Lymph node involvement: Number of nodes with macrometastases: 1 (0.5 cm). Number of nodes with micrometastases: 4 TREATMENT EFFECT: Response to Presurgical Therapy Breast: No significant tumor necrosis identified. Lymph nodes: No tumor necrosis identified. LYMPH-VASCULAR INVASION: Not identified PATHOLOGIC STAGING: AJCC, 7th ed., 2010 PRIMARY TUMOR: pT3 REGIONAL LYMPH NODES: pN2a ANCILLARY STUDIES: Biomarkers Performed on Previous Biopsy: Results taken from surgical operative note. Estrogen Receptor (ER) Status: Positive Progesterone Receptor (PgR) Status: Positive HER2 (by immunohistochemistry): Negative 3.RIGHT CHEST WALL RE-EXCISION SPECIMEN: 0.2 CM FOCUS OF INVASIVE CARCINOMA PRESENT 0.4 CM FROM THE DEEP MARGIN (SKELETAL MUSCLE NOT INVADED BY TUMOR). ALL OTHER MARGINS WIDELY FREE OF TUMOR. 4.RIGHT AXILLARY LYMPH NODE DISSECTION: 12 LYMPH NODES IDENTIFIED, 2 OF WHICH ARE POSITIVE FOR METASTATIC CARCINOMA WITH FOCAL EXTRANODAL EXTENSION BY TUMOR. LARGEST TUMOR FOCUS MEASURES 0.3 CM ON THE SLIDE. ICD10 code C50.512 GROSS DESCRIPTION: [id number] A. Received in formalin, labeled "left breast", specimen consists of a 1982 gram left simple mastectomy specimen measuring 25 cm lateral to medial by 20 cm superior to inferior, and 6.5 cm anterior to posterior. Specimen is oriented with short and long sutures marking superior and lateral margins, respectively. Specimen is covered by a nipple bearing light paul ellipse of skin measuring 23.0 x 15.0 cm. The nipple is flattened and it measures 1.2 x 0.8 cm. Inking protocol is applied. Superior is inked black, inferior is inked orange, medial aspect of the specimen is inked green, lateral is inked blue, and the posterior inked yellow. Specimen serially sectioned. Cut surface shows about 80% of yellow fatty tissue and about 20% of a rebolledo to white, ill-defined, white fibrous tissue. No masses or lesions are grossly identified. There are four possible lymph nodes identified at the lateral aspect of the specimen ranging in size from 0.5 cm in maximum dimension up to 1.3 x 0.8 x 0.5 cm. Flame Burner sections submitted as follows: cassettes A and B-upper outer quadrant; cassettes C and D-lower outer quadrant; cassettes E and F-lower inner quadrant; cassettes G and H-upper inner quadrant; cassette I-from the nipple; cassette J-from unremarkable skin; cassette K-three possible lymph nodes; cassette L-one possible lymph node, serially sectioned; cassette M-a blood vessel-like structure identified at the lateral aspect of the specimen. 2. Received in formalin, labeled "right breast". Specimen consists of a 1434 gram, right modified radical mastectomy specimen measuring 22.0 cm lateral to medial by 21.0 cm superior to inferior and 7.0 cm anterior to posterior. Specimen oriented with short and long sutures marking superior and lateral margins, respectively. Specimen is partially covered by a paul ellipse of skin measuring 20.0 x 11.0 cm and it has a retracted nipple that measures 1.0 cm in diameter retracted to a depth of 0.8 cm. There is also a retracted area at the lateral aspect of the nipple measuring 0.8 cm. It is 2.5 cm from the nipple. The remainder of the epidermal surface is paul. No other masses or lesions are grossly identified. Inking protocol is applied. Superior aspect of the specimen is inked black, inferior is inked orange, lateral is inked blue, medial is inked green, and the posterior aspect of the specimen is inked yellow. Specimen is serially sectioned. At the lateral mid portion of the specimen there is an ill-defined white firm mass measuring 6.5 cm by 4.5 cm by 5.5 cm. The mass is 1.5 cm to the inferior resection margin, 5.5 cm to the superior resection margin, 1.5 cm to the deep resection margin, 4.0 cm to the lateral resection margin, and 8.5 cm to the medial resection margin. The location of the mass is corresponding with the retracted area to the overlying nipple and adjacent retracted area. The remainder of the cut surface is yellow to white. No other masses or lesions are grossly identified. Flame Burner sections submitted as follows: cassette A-lateral resection margin shave; cassette B-medial resection margin shave; cassette C-superior resection margin shave; cassette D-inferior margin perpendicular; cassette E-deep margin, perpendicular; cassettes T-O-[id number] section from the mass in relation to adjacent breast parenchyma; cassette L-upper outer quadrant; cassette M-lower outer quadrant; cassette N-lower inner quadrant; cassette O-upper inner quadrant. A portion of axillary tail is attached measuring 10.0 x 4.0 x 2.5 cm. Ten possible lymph nodes are identified within the axillary tail ranging from 0.3 cm in maximum dimension up to 1.0 x 0.8 x 0.5 cm. These possible lymph nodes submitted as follows: cassette P-four possible lymph nodes; cassette Q-three possible lymph nodes; cassette R-one possible lymph node; cassette S-one possible lymph node serially sectioned; cassettes T and U-retracted nipple; cassette V-from the retracted area adjacent to the nipple; cassette W-the mass in relation to overlying skin; cassette X-patient account representative section from unremarkable skin. 3. Received in formalin, labeled "right chest wall tissue", specimen consists of an irregular yellow-paul, rubbery tissue fragment measuring 5.5 cm lateral to medial by 3.5 cm superior to inferior by 0.7 cm anterior to posterior. Inking protocol is applied. Specimen is inked as follows: anterior-purple, posterior aspect is inked yellow, superior is inked black, inferior is inked orange, lateral is inked blue, and medial is inked green. Specimen is serially sectioned and submitted entirely marching from medial to lateral in 10 cassettes. 4. Received in formalin, labeled "right axillary lymph node", specimen consists of an irregular, yellow, fibroadipose rubbery tissue fragment measuring 12.0 x 7.5 x 2.5 cm. Fourteen possible lymph nodes are identified measuring from 0.3 x 0.2 x 0.2 cm up to 4.0 x 3.5 x 1.2 cm. These possible lymph nodes are submitted as follows: A -4 possible nodes, B 2 possible nodes, C Fat with possible nodes, D-J-the largest lymph node-like structure serially sectioned; K-three possible lymph nodes; L-two possible lymph nodes; M-one possible lymph node. (AA:[id number]) MICRO DESCRIPTION: Sections from part 1 are from the left simple mastectomy specimen. There is no evidence for malignancy or significant atypia. Three lymph noses are identified and they are benign. Sections from part 2 are from the right breast simple mastectomy specimen. The grossly-described mass is an infiltrating carcinoma consisting of malignant epithelial cells that are of small to intermediate size with irregular hyperchromatic nuclei and some containing distinct nucleoli. The overall growth pattern is suggestive of an infiltrating lobular carcinoma; however, immunohistochemistry with antibodies against E-cadherin indicate that the tumor cells are positive, thus confirming that this is indeed an infiltrating ductal carcinoma. The cells are generally infiltrating as individual cells or in small groups with no significant tubular differentiation. Mitotic rate appears low. Nuclear grade is considered intermediate. This is an overall Katie score of 6 of 9 which converts to a tumor grade score 2 of 3. Adjacent to the infiltrating tumor are the inflammatory changes of previous biopsy. Anteriorly the tumor invades the smooth muscle beneath the nipple. Nipple ducts are not involved, and the skin is negative for tumor. Duct carcinoma in situ is not identified. There is no evidence of vascular invasion or lymphatic channel invasion. In the axillary portion there are 7 lymph nodes identified and five are positive for metastatic carcinoma with extranodal tumor extension. The largest tumor focus measures 0.5 cm. The inked margins appear negative for tumor . Sections from part 3 are of re-excision tissue from the right chest wall area. The deep margin of this specimen is skeletal muscle. There is one 2 mm focus of invasive tumor present immediately adjacent to the skeletal muscle, and although there is yellow ink that has "leaked" into the area of tumor, the actual deep margin (skeletal muscle) is negative for malignancy. The tumor extends, therefore, within 0.4 cm of the true deep margin of the specimen. Part 4 consists of tissue from the right axilla. A total of 12 lymph nodes are identified, and 2 of these are positive for metastatic carcinoma with invasion of tumor into perinodal adipose tissue (extranodal extension). This test was developed and its performance characteristics determined by [employer]. It has not been cleared or approved by the [place]. Food and Drug Administration. The FDA has determined that such clearance or approval is not necessary. This test is used for clinical purposes. It should not be regarded as investigational or for research. ICD-9 CODES: CPT CODES: 1: 15368 2: 57937, 25971 3: 06072 4: 70180 Electronically Signed Out Quan Augustine MD [facility] [address], [place] [address] Technical component performed at [facility], [address], [place], [address]
== END 2016-12-02 15:18 | disposition home or self-care (01) ==
LOC: SAS 09:57 → OSC 16:41 → SAS 12-02 15:18
PROVIDERS: ATTEND Student in an Organized Health Care Education/Training Program
DX: C50.411 Malignant neoplasm of upper-outer quadrant of right female breast (principal); C77.3 Secondary and unspecified malignant neoplasm of axilla and upper limb lymph nodes; Z17.0 Estrogen receptor positive status [ER+]; I10 Essential (primary) hypertension; J45.909 Unspecified asthma, uncomplicated; J44.9 Chronic obstructive pulmonary disease, unspecified; M79.7 Fibromyalgia; F41.9 Anxiety disorder, unspecified; F32.9 Major depressive disorder, single episode, unspecified; Z79.899 Other long term (current) drug therapy
CPT/HCPCS: 19303; 36415; 38525; 80048; 81000; 85027; 97161; J1100; J1170; J1885; J2270; J2370; J2765; J3010; J7120